=== PATIENT | male | born 1950 | race Caucasian/White ===

== ENCOUNTER 2018-12-10 17:59 | Emergency (ER) | payer MEDICARE ==
[~2018-12-10] VITALS: Ht 190.5 cm; Wt 134.7 kg
[2018-12-10] MEDS ORDERED: ASPIR-LOW81 MG PO (18:23)
[2018-12-10] MEDS ORDERED: LAMOTRIGINE200 MG PO (18:23)
[2018-12-10] MEDS ORDERED: FISH OIL 1,2001 EAC4 PO (18:23)
[2018-12-10] MEDS ORDERED: LISINOPRIL-HCT1 EACH PO (18:24)
[2018-12-10] MEDS ORDERED: LEVOTHYROXINE25 MCG PO (18:24)
[2018-12-10] MEDS ORDERED: LATUDA80 MG PO (18:24)
[2018-12-10] MEDS ORDERED: LOVASTATIN40 MG PO (18:24)
[2018-12-10] MEDS ORDERED: METFORMIN HCL500 MG PO (18:25)
[2018-12-10] MEDS ORDERED: MAGNESIUM500 MG PO (18:25)
[2018-12-10] MEDS ORDERED: METOPROLOL SUCC25 MG PO (18:25)
[2018-12-10] MEDS ORDERED: OMEPRAZOLE20 MG PO (18:26)
[2018-12-10] MEDS ORDERED: NIACIN250 M1 PO (18:26)
[2018-12-10] MEDS ORDERED: PERCOCET 5-3251 EACH PO (18:26)
[2018-12-10] MEDS ORDERED: VITAMIN D35000 UNIT PO (18:27)
== END 2018-12-10 21:10 | disposition home or self-care (01) ==
LOC: ED 17:59
DX: F20.9 Schizophrenia, unspecified (principal); E11.9 Type 2 diabetes mellitus without complications; K21.9 Gastro-esophageal reflux disease without esophagitis; I10 Essential (primary) hypertension; Z88.0 Allergy status to penicillin; Z79.82 Long term (current) use of aspirin; Z79.899 Other long term (current) drug therapy; Z79.84 Long term (current) use of oral hypoglycemic drugs; Z79.891 Long term (current) use of opiate analgesic
CPT/HCPCS: 70450; 80053; 80176; 81001; 84443; 85025; 99285-25; G0480